=== PATIENT | female | born 1990 | race Caucasian/White ===

== ENCOUNTER 2018-03-24 13:28 | Emergency (ER) | payer OTHER ==
[~2018-03-24] VITALS: Ht 175.3 cm; Wt 127.0 kg
[2018-03-24] MEDS ORDERED: IBUP800 PO (13:49)
[2018-03-24] MEDS ORDERED: Norco 5-325 Ta1 EACH PO (13:49)
[2018-03-24] MEDS ORDERED: CYCL10 PO (13:49)
== END 2018-03-24 14:13 | disposition home or self-care (01) ==
LOC: ER 13:28
DX: S16.1XXA Strain of muscle, fascia and tendon at neck level, initial encounter (principal); M25.572 Pain in left ankle and joints of left foot; V44.5XXA Car driver injured in collision with heavy transport vehicle or bus in traffic accident, initial encounter
CPT/HCPCS: 96372; 99283-25; J1885

== ENCOUNTER → 2020-01-31 | Outpatient (CLI) | payer OTHER ==
[~2020-01-31] MED LIST: CYCL10 PO; IBUP800 PO; Norco 5-325 Ta1 EACH PO
[2020-02-02 01:10] LABS: CHLAMYDIA TRACHOMATIS, NAA Negative (Negative); NEISSERIA GONORRHOEAE, NAA Negative (Negative)
== END ==
LOC: LAB SHORT 14:49 → LAB UCHC 14:49
PROVIDERS: Registered Nurse Community Health
DX: Z33.1 Pregnant state, incidental (principal)
CPT/HCPCS: 87491; 87591

== ENCOUNTER → 2020-07-02 | Outpatient (CLI) | payer OTHER ==
[~2020-07-02] MED LIST changes: +ACET325 PO; +ALBU8HFA2 INH; +LORA10ER PO; +PANT40 PO; +PRENATAL TABLE1 EAC2 PO
== END ==
LOC: LAB SHORT 11:42 → LAB 11:42
DX: Z33.1 Pregnant state, incidental (principal); Z36.85 Encounter for antenatal screening for Streptococcus B
CPT/HCPCS: 87081; 87150

== ENCOUNTER 2020-07-22 04:57 | Inpatient (IN) | payer OTHER ==
[~2020-07-22] VITALS: Ht 175.3 cm; Wt 159.5 kg
[~2020-07-22 04:57] MED LIST changes: -ACET325 PO; -ALBU8HFA2 INH; -LORA10ER PO; -PANT40 PO; -PRENATAL TABLE1 EAC2 PO
[2020-07-22] MEDS ORDERED: PANT40 PO (05:23)
[2020-07-22] MEDS ORDERED: ALBU8HFA2 INH (05:24)
[2020-07-22] MEDS ORDERED: LORA10ER PO (05:24)
[2020-07-22] MEDS ORDERED: PRENATAL TABLE1 EAC2 PO (05:24)
[2020-07-22] MEDS ORDERED: ACET325 PO (05:31)
[2020-07-22 05:42] LABS: BASOPHILS ABSOLUTE AUTO 0.04 K/mm3 (0.00-0.23); BASOPHILS PERCENT AUTO 0 % (0-2); EOSINOPHILS ABSOLUTE AUTO 0.29 K/mm3 (0.00-0.68); EOSINOPHILS PERCENT AUTO 3 % (0-6); Hematocrit 35.6 % (33.0-51.0); Hemoglobin 11.5 g/dL (11.5-16.0); IMMATURE GRAN ABSOLUTE AUTO 0.04 K/mm3 (0.00-0.10); IMMATURE GRAN PERCENT AUTO 0 % (0-1); LYMPHOCYTES ABSOLUTE AUTO 1.96 K/mm3 (0.84-5.20); LYMPHOCYTES PERCENT AUTO 21 % (21-46); MONOCYTES ABSOLUTE AUTO 0.68 K/mm3 (0.16-1.47); MONOCYTES PERCENT AUTO 7 % (4-13); Mean Corpuscular HGB 26.3 pg (26.0-34.0); Mean Corpuscular HGB Conc 32.3 g/dL (31.5-36.5); Mean Corpuscular Volume 81 fL (80-100); NEUTROPHILS ABSOLUTE AUTO 6.31 K/mm3 (1.96-9.15); NEUTROPHILS PERCENT AUTO 68 % (41-73); Platelet Count 320 K/mm3 (150-400); RDW Coefficient Variation 14.9 % (11.7-14.2); RDW Standard Deviation 44.4 fL (35.1-46.3); Red Blood Cell Count 4.38 M/mm3 (3.80-5.20); White Blood Cell Count 9.32 K/mm3 (4.00-11.30)
[2020-07-23 06:13] LABS: BASOPHILS ABSOLUTE AUTO 0.04 K/mm3 (0.00-0.23); BASOPHILS PERCENT AUTO 0 % (0-2); EOSINOPHILS ABSOLUTE AUTO 0.24 K/mm3 (0.00-0.68); EOSINOPHILS PERCENT AUTO 2 % (0-6); Hematocrit 35.3 % (33.0-51.0); Hemoglobin 11.1 g/dL (11.5-16.0); IMMATURE GRAN ABSOLUTE AUTO 0.06 K/mm3 (0.00-0.10); IMMATURE GRAN PERCENT AUTO 1 % (0-1); LYMPHOCYTES ABSOLUTE AUTO 1.85 K/mm3 (0.84-5.20); LYMPHOCYTES PERCENT AUTO 19 % (21-46); MONOCYTES ABSOLUTE AUTO 0.89 K/mm3 (0.16-1.47); MONOCYTES PERCENT AUTO 9 % (4-13); Mean Corpuscular HGB 26.2 pg (26.0-34.0); Mean Corpuscular HGB Conc 31.4 g/dL (31.5-36.5); Mean Corpuscular Volume 84 fL (80-100); Mean Platelet Volume 11.1 fL (9.1-12.4); NEUTROPHILS ABSOLUTE AUTO 6.92 K/mm3 (1.96-9.15); NEUTROPHILS PERCENT AUTO 69 % (41-73); Platelet Count 302 K/mm3 (150-400); RDW Coefficient Variation 15.1 % (11.7-14.2); RDW Standard Deviation 45.4 fL (35.1-46.3); Red Blood Cell Count 4.23 M/mm3 (3.80-5.20)
[2020-07-23] MEDS ORDERED: IBUP800 PO (09:12)
--- NOTE | 2020-07-23 17:30 | NUR ---
D/C HOME WITH BABY
== END 2020-07-23 17:30 | disposition home or self-care (01) | DRG 807 ==
LOC: OBS 04:57 → BC 05:12
PROVIDERS: ADMIT Registered Nurse Community Health
PROC: 10E0XZZ Delivery of Products of Conception, External Approach (ICD-10-PCS; principal; 2020-07-22)
PROC: 3E033VJ Introduction of Other Hormone into Peripheral Vein, Percutaneous Approach (ICD-10-PCS; 2020-07-22)
PROC: 0HQ9XZZ Repair Perineum Skin, External Approach (ICD-10-PCS; 2020-07-22)
PROC: 3E0R3BZ Introduction of Anesthetic Agent into Spinal Canal, Percutaneous Approach (ICD-10-PCS; 2020-07-22)
PROC: 00HU33Z Insertion of Infusion Device into Spinal Canal, Percutaneous Approach (ICD-10-PCS; 2020-07-22)
PROC: 3E0234Z Introduction of Serum, Toxoid and Vaccine into Muscle, Percutaneous Approach (ICD-10-PCS; 2020-07-23)
DX: O99.214 Obesity complicating childbirth (principal); Z37.0 Single live birth; E66.01 Morbid (severe) obesity due to excess calories; O70.0 First degree perineal laceration during delivery; Z3A.39 39 weeks gestation of pregnancy; Z23 Encounter for immunization
CPT/HCPCS: 36415; 51702; 85025; 86850; 86900; 86901; 90471; 90707; A9270; J1885; J2001; J2210; J2590; J3010; J7120

== ENCOUNTER 2020-08-19 00:07 | Emergency (ER) | payer OTHER ==
[~2020-08-19] VITALS: Ht 175.3 cm; Wt 153.5 kg
[~2020-08-19 00:07] MED LIST changes: +ACET325 PO; +ALBU8HFA2 INH; +LORA10ER PO; +PANT40 PO; +PRENATAL TABLE1 EAC2 PO
[2020-08-19 01:02] LABS: BASOPHILS ABSOLUTE AUTO 0.07 K/mm3 (0.00-0.23); BASOPHILS PERCENT AUTO 1 % (0-2); EOSINOPHILS ABSOLUTE AUTO 0.66 K/mm3 (0.00-0.68); EOSINOPHILS PERCENT AUTO 7 % (0-6); Hematocrit 39.4 % (33.0-51.0); Hemoglobin 12.1 g/dL (11.5-16.0); IMMATURE GRAN ABSOLUTE AUTO 0.03 K/mm3 (0.00-0.10); IMMATURE GRAN PERCENT AUTO 0 % (0-1); LYMPHOCYTES ABSOLUTE AUTO 2.42 K/mm3 (0.84-5.20); LYMPHOCYTES PERCENT AUTO 24 % (21-46); MONOCYTES ABSOLUTE AUTO 0.94 K/mm3 (0.16-1.47); MONOCYTES PERCENT AUTO 9 % (4-13); Mean Corpuscular HGB 25.3 pg (26.0-34.0); Mean Corpuscular HGB Conc 30.7 g/dL (31.5-36.5); Mean Corpuscular Volume 82 fL (80-100); Mean Platelet Volume 10.4 fL (9.1-12.4); NEUTROPHILS ABSOLUTE AUTO 5.96 K/mm3 (1.96-9.15); NEUTROPHILS PERCENT AUTO 59 % (41-73); Platelet Count 376 K/mm3 (150-400); RDW Coefficient Variation 14.6 % (11.7-14.2); RDW Standard Deviation 44.1 fL (35.1-46.3); Red Blood Cell Count 4.79 M/mm3 (3.80-5.20); White Blood Cell Count 10.08 K/mm3 (4.00-11.30)
[2020-08-19 01:16] LABS: Source, Urine Clean Catch
[2020-08-19 01:18] LABS: Bilirubin, Urine Neg (Neg); Blood, Urine 5+ (Neg); Glucose Qualitative, Urine Neg (Neg); Ketones, Urine Neg (Neg); Leukocyte Esterase, Urine 2+ (Neg); Nitrite, Urine Neg (Neg); Protein, Urine Neg (Neg); Specific Gravity, Urine 1.015 (1.003-1.022); Urobilinogen, Urine NORM (Normal)
[2020-08-19 01:20] LABS: Alanine Aminotransfer (ALT/SGP 39 U/L (12-78); Albumin, Blood 3.1 g/dL (3.4-5.0); Albumin/Globulin Ratio 0.8 (0.8-1.8); Alk Phos 105 U/L (50-136); Anion Gap 5 mmol/L (6-16); Aspartate Aminotrans (AST/SGOT 23 U/L (12-37); Bilirubin, Total 0.1 mg/dL (0.1-1.0); Blood Urea Nitrogen 14 mg/dL (8-24); Bun/Creatinine Ratio 18.6 (12.0-20.0); CO2, Blood 27 mmol/L (21-32); Calcium, Blood 8.6 mg/dL (8.5-10.1); Chloride, Blood 106 mmol/L (98-108); Creatinine, Blood 0.75 mg/dL (0.40-1.00); Globulin, Blood 3.8 g/dL (2.2-4.0); Glomerular Filtration Rate >60 (60-); Glucose, Blood 101 mg/dL (70-99); Potassium, Blood 3.6 mmol/L (3.5-5.5); Sodium, Blood 138 mmol/L (136-145); Total Protein, Blood 6.9 g/dL (6.4-8.2)
[2020-08-19 01:21] LABS: Appearance, Urine Clear (Clear); Color, Urine Yellow (P-Yellow)
[2020-08-19 01:24] LABS: Bacteria Few /hpf; Red Blood Cells, Urine 0-2 /hpf (0-2); Squamous Epithelial Cells Few /hpf (Few)
== END 2020-08-19 02:50 | disposition home or self-care (01) ==
LOC: ER 00:07
PROVIDERS: Student in an Organized Health Care Education/Training Program
DX: K80.20 Calculus of gallbladder without cholecystitis without obstruction (principal); J45.909 Unspecified asthma, uncomplicated; Z91.030 Bee allergy status; Z79.899 Other long term (current) drug therapy
CPT/HCPCS: 36415; 76705; 80053; 81001; 81025; 83690; 85025; 87086; 96374; 99284-25; J1885

== ENCOUNTER 2020-09-17 19:40 | Emergency (ER) | payer OTHER ==
[~2020-09-17] VITALS: Ht 175.3 cm; Wt 154.2 kg
[2020-09-17 20:34] LABS: BASOPHILS ABSOLUTE AUTO 0.08 K/mm3 (0.00-0.23); BASOPHILS PERCENT AUTO 1 % (0-2); EOSINOPHILS PERCENT AUTO 5 % (0-6); Hematocrit 40.1 % (33.0-51.0); Hemoglobin 12.4 g/dL (11.5-16.0); IMMATURE GRAN ABSOLUTE AUTO 0.05 K/mm3 (0.00-0.10); IMMATURE GRAN PERCENT AUTO 0 % (0-1); LYMPHOCYTES ABSOLUTE AUTO 3.72 K/mm3 (0.84-5.20); LYMPHOCYTES PERCENT AUTO 29 % (21-46); MONOCYTES PERCENT AUTO 8 % (4-13); Mean Corpuscular HGB 25.5 pg (26.0-34.0); Mean Corpuscular HGB Conc 30.9 g/dL (31.5-36.5); Mean Corpuscular Volume 83 fL (80-100); Mean Platelet Volume 10.1 fL (9.1-12.4); NEUTROPHILS ABSOLUTE AUTO 7.43 K/mm3 (1.96-9.15); NEUTROPHILS PERCENT AUTO 57 % (41-73); Platelet Count 403 K/mm3 (150-400); RDW Coefficient Variation 14.6 % (11.7-14.2); RDW Standard Deviation 43.9 fL (35.1-46.3); Red Blood Cell Count 4.86 M/mm3 (3.80-5.20); White Blood Cell Count 12.98 K/mm3 (4.00-11.30)
[2020-09-17 20:42] LABS: Alanine Aminotransfer (ALT/SGP 48 U/L (12-78); Albumin, Blood 3.3 g/dL (3.4-5.0); Albumin/Globulin Ratio 0.8 (0.8-1.8); Alk Phos 103 U/L (50-136); Anion Gap 5 mmol/L (6-16); Aspartate Aminotrans (AST/SGOT 34 U/L (12-37); Bilirubin, Total 0.2 mg/dL (0.1-1.0); Blood Urea Nitrogen 13 mg/dL (8-24); Bun/Creatinine Ratio 15.8 (12.0-20.0); CO2, Blood 30 mmol/L (21-32); Calcium, Blood 8.9 mg/dL (8.5-10.1); Chloride, Blood 107 mmol/L (98-108); Creatinine, Blood 0.82 mg/dL (0.40-1.00); Glomerular Filtration Rate >60 (60-); Glucose, Blood 103 mg/dL (70-99); Potassium, Blood 3.5 mmol/L (3.5-5.5); Sodium, Blood 142 mmol/L (136-145); Total Protein, Blood 7.3 g/dL (6.4-8.2)
== END 2020-09-18 00:36 | disposition home or self-care (01) ==
LOC: ER 19:40
PROVIDERS: Physician Assistant
DX: K80.70 Calculus of gallbladder and bile duct without cholecystitis without obstruction (principal); Z91.030 Bee allergy status; Z79.899 Other long term (current) drug therapy
CPT/HCPCS: 76705; 80053; 83690; 84703; 85025; 96374; 96375; 99284-25; A9270; J1885; J2405; J2765

== ENCOUNTER 2020-09-26 08:40 | Day surgery (SDC) | payer OTHER ==
[~2020-09-26] VITALS: Ht 175.3 cm; Wt 149.1 kg
--- NOTE | 2020-09-26 09:41 | NUR ---
Ambulatory in [facility] warming gown applied. Surgical site prepped with 2% Chlorhexidine cloth wipe. History, Chart, Medications and Allergies reviewed before start of procedure.Lungs clear T/O to Auscultation. Patient confirms NPO status and agrees with scheduled surgery. Patient States Post-Procedure ride home has been arranged. Patient reports completing Chlorhexadine shower X2 prior to admission to hospital.
--- NOTE | 2020-09-26 12:45 | NUR ---
PT TO RECOVERY ON 3L NC. PT BIOX BIOX 94% ON 3L. PT O2 TURNED OFF TO EVALUATE PT. PT BIOX UP TO 98% AFTER TAKING A FEW DEEP BREATHS. PT ENCOURAGED TO SPLINT HER ABD AND DEEP BREATH. PT ABLE TO TAKE SMALL SIPS OF SPRITE AND HAS EAT A ALBA CRACKERS. REPORTS PAIN IS 6/10. PT GIVEN NORCO PO. PT WHEN AT REST BIOX WILL DROP TO 89% BUT RETURNS TO MID TO HIGH 90'S WITH A FEW FEW DEEP BREATHS. WILL TURN O2 BACK ON 2L AND ALLOW PT TO REST FOR A BIT.
--- NOTE | 2020-09-26 13:14 | NUR ---
O2 DOWN TO 1L NC. PT BIOX MAINTAINING BETWEEN 93-95%. PT C/O IMPROVEMENT IN PAIN BUT C/O NAUSEA. PT GIVEN ZOFRAN 4MG IV. WILL CONTINUE TO MONITOR PATIENT.
--- NOTE | 2020-09-26 13:51 | NUR ---
PT DID VOMIT AFTER SHE WAS ABLE TO SIT UP AND GET DRESSED. PT REPORTS FEELING SOME BETTER AFTER VOMITING. EMESIS ABOUT 300CC OF GREENISH EMESIS. NO APPEARANCE OF RECENT PAIN PILL THAT PT JUST TOOK. PT REPORTS PAIN IS ABOUT 4/10. REQUESTS SOME SPRITE AND STATES SHE IS READY TO GO HOME. DC INSTRUCTION PROVIDED. PT VERBALIZED UNDERSTANDING.
== END 2020-09-26 13:56 | disposition home or self-care (01) ==
LOC: ORSCMMR 08:40 → ORSCSDS 09:30 → ORD 10:00 → ORSCMMR 10:00 → ORD 10-21 10:00
PROVIDERS: Surgery
PROC: BF031ZZ Plain Radiography of Gallbladder and Bile Ducts using Low Osmolar Contrast (ICD-10-PCS; principal; 2020-09-26 10:00)
PROC: 0FT44ZZ Resection of Gallbladder, Percutaneous Endoscopic Approach (ICD-10-PCS; principal; 2020-09-26 10:00)
DX: K80.20 Calculus of gallbladder without cholecystitis without obstruction (principal); K21.9 Gastro-esophageal reflux disease without esophagitis; J45.909 Unspecified asthma, uncomplicated; E66.01 Morbid (severe) obesity due to excess calories; Z68.42 Body mass index [BMI] 45.0-49.9, adult; Z79.899 Other long term (current) drug therapy
CPT/HCPCS: 74300; 88304; A9270; C1729; J0690; J1100; J1885; J2250; J2405; J2704; J2765; J3010; J7120

== ENCOUNTER → 2021-11-11 | Outpatient (CLI) | payer OTHER | END | disposition home or self-care (01) | LOC: LAB 10:30 → LAB SHORT 10:30 | DX: N92.5 Other specified irregular menstruation (principal) | CPT/HCPCS: 84702 ==

== ENCOUNTER → 2022-04-21 | Outpatient (CLI) | payer OTHER | END | disposition home or self-care (01) | LOC: LAB SHORT 13:08 → LAB 13:08 | PROVIDERS: Registered Nurse Community Health | DX: Z12.4 Encounter for screening for malignant neoplasm of cervix (principal) | CPT/HCPCS: G0145 ==

== ENCOUNTER → 2022-11-03 | Outpatient (CLI) | payer OTHER ==
[2022-11-05 00:08] LABS: CHLAMYDIA TRACHOMATIS, NAA Negative (Negative)
== END | disposition home or self-care (01) ==
LOC: LAB SHORT 11:21 → LAB 11:21
PROVIDERS: Registered Nurse Community Health
DX: Z34.83 Encounter for supervision of other normal pregnancy, third trimester (principal)
CPT/HCPCS: 36415; 87491; 87591

== ENCOUNTER → 2023-04-01 | Outpatient (CLI) | payer OTHER | LOC: LAB SHORT 17:54 → LAB 17:54 | DX: Z32.01 Encounter for pregnancy test, result positive (principal) | CPT/HCPCS: 84702 ==

== ENCOUNTER → 2023-04-06 | Outpatient (CLI) | payer OTHER | END | disposition home or self-care (01) | LOC: LAB SHORT 16:43 → LAB 16:43 | DX: Z32.01 Encounter for pregnancy test, result positive (principal) | CPT/HCPCS: 84702 ==

== ENCOUNTER → 2023-04-08 | Outpatient (CLI) | payer OTHER | END | disposition home or self-care (01) | LOC: LAB SHORT 12:37 → LAB 12:37 | DX: N91.2 Amenorrhea, unspecified (principal) | CPT/HCPCS: 84702 ==

== ENCOUNTER → 2023-05-20 | Outpatient (CLI) | payer OTHER ==
[2023-05-22 06:47] LABS: APTIMA MEDIA TYPE Urine; C. TRACHOMATIS BY TMA Negative (Negative); N. GONORRHOEAE BY TMA Negative (Negative); SPECIMEN SOURCE Urine
== END | disposition home or self-care (01) ==
LOC: LAB 11:46 → LAB SHORT 11:46
PROVIDERS: Registered Nurse Community Health
DX: Z34.83 Encounter for supervision of other normal pregnancy, third trimester (principal)
CPT/HCPCS: 87491; 87591

== ENCOUNTER → 2023-07-20 | Outpatient (CLI) | payer OTHER | LOC: LAB SHORT 14:49 → LAB 14:49 | DX: Z34.82 Encounter for supervision of other normal pregnancy, second trimester (principal) | CPT/HCPCS: 82950 ==

== ENCOUNTER → 2023-08-03 | Outpatient (CLI) | payer OTHER ==
[2023-08-03 16:27] LABS: Hematocrit 36.9 % (33.0-51.0); Hemoglobin 11.6 g/dL (11.5-16.0)
== END | disposition home or self-care (01) ==
LOC: LAB SHORT 14:33 → LAB 14:33
PROVIDERS: Registered Nurse Community Health
DX: Z34.82 Encounter for supervision of other normal pregnancy, second trimester (principal)
CPT/HCPCS: 83036; 85014; 85018

== ENCOUNTER → 2023-09-15 | Outpatient (CLI) | payer OTHER ==
[2023-09-15 13:55] LABS: Hematocrit 35.9 % (33.0-51.0)
== END ==
LOC: LAB SHORT 11:33 → LAB 11:33
PROVIDERS: Registered Nurse Community Health
DX: Z34.93 Encounter for supervision of normal pregnancy, unspecified, third trimester (principal)
CPT/HCPCS: 82950; 85014; 85018

== ENCOUNTER → 2023-11-11 | Outpatient (CLI) | payer OTHER | LOC: LAB 18:46 → LAB SHORT 18:46 | DX: Z34.93 Encounter for supervision of normal pregnancy, unspecified, third trimester (principal) | CPT/HCPCS: 87081; 87150 ==

== ENCOUNTER 2023-12-06 02:44 | Inpatient (IN) | payer OTHER ==
[~2023-12-06] VITALS: Ht 175.3 cm; Wt 156.8 kg
[2023-12-06] VITALS (12 sets, daily range): BP systolic 123–151; BP diastolic 58–92
[2023-12-06] MEDS ORDERED: OXYTOCIN/RINGER'S LACTATE 500 ML IV PRN (02:55)
[2023-12-06] MEDS ORDERED: Carboprost Tromethamine 250 MCG/ML 1ML Amp IM PRN (02:55)
[2023-12-06] MEDS ORDERED: Oxytocin 10 Unit / ML Vial IM PRN (02:55)
[2023-12-06] MEDS ORDERED: FentaNYL 2mcg/ml-Bup 0.1% Epd 250 ML EPI PRN (02:55)
[2023-12-06] MEDS ORDERED: Lactated Ringer's 1,000 ML IV PRN (02:55)
[2023-12-06] MEDS ORDERED: Misoprostol 200 MCG Tab PR PRN ×2 (02:55→03:50)
[2023-12-06] MEDS ORDERED: Tranexamic Acid 100 ML IV SCH (02:55)
[2023-12-06] MEDS ORDERED: Methylergonovine Maleate 0.2MG / ML 1ML Amp IM PRN (02:55)
[2023-12-06] MEDS ORDERED: ePHEDrine Sulfate 50 MG/ML 1ML Injection XX PRN (02:55)
[2023-12-06] MEDS ORDERED: Lactated Ringer's 1,000 ML IV SCH ×3 (02:55→03:55)
[2023-12-06] MEDS ORDERED: Misoprostol 200 MCG Tab BC PRN ×2 (02:55→04:20)
[2023-12-06] MEDS ORDERED: Ondansetron HCl 2 MG / ML 2ML Vial IV PRN (03:00)
[2023-12-06] MEDS ORDERED: Calcium Carbonate 500 MG Tab Chew PO PRN (03:00)
[2023-12-06] MEDS ORDERED: Acetaminophen 500 MG Tab PO PRN (03:00)
[2023-12-06] MEDS ORDERED: OXYTOCIN/RINGER'S LACTATE 500 ML IV ONE (03:02)
[2023-12-06] MEDS ORDERED: ASPI81CH (03:11)
[2023-12-06] MEDS ORDERED: Misoprostol 200 MCG Tab PO PRN (03:50)
[2023-12-06] MEDS ORDERED: OxyCODONE 5 mg/Acetamin 325 mg TABLET PO PRN (03:50)
[2023-12-06] MEDS ORDERED: Ibuprofen 400 MG Tab PO PRN (03:55)
[2023-12-06] MEDS ORDERED: Benzocaine Topical Anesthetic Spray 60GM TOP PRN (03:55)
[2023-12-06] MEDS ORDERED: Acetaminophen 325 MG TABLET PO PRN (03:55)
[2023-12-06] MEDS ORDERED: Witch Hazel/Glycerin PADS TOP PRN (03:55)
[2023-12-06] MEDS ORDERED: Ketorolac Tromethamine 30mg Vial IV SCH (06:00)
[2023-12-06] MEDS ORDERED: Prenatal Vit/FE Fumarate/FA 1 Tab PO SCH (09:00)
[2023-12-07 03:44] VITALS: BP 126/74
[2023-12-07] MEDS ORDERED: ACET500 PO (05:48)
[2023-12-07] MEDS ORDERED: IBUP800 PO (05:48)
[2023-12-07 07:55] VITALS: BP 131/89
--- NOTE | 2023-12-07 09:47 | NUR ---
"Spiritual Care | Pt. request Pt. is in bed hold her new born son Balwinder. SO is present. Facilitate a life review and listen with empathy and calming presence. Pt. and baby display evidence of being well rested, and Pt. is aware and engaged in our visit. Prayed for the Pt. and blessed the baby. Family verbalized gratitude for the spiritual care visit."
[2023-12-07 11:01] VITALS: BP 139/94
[2023-12-07 11:26] VITALS: BP 140/90
== END 2023-12-07 12:50 | disposition home or self-care (01) | DRG 807 ==
LOC: OBS 02:44 → BC 02:54
PROVIDERS: ADMIT Family Medicine
PROC: 10E0XZZ Delivery of Products of Conception, External Approach (ICD-10-PCS; principal; 2023-12-06)
PROC: 3E0R3BZ Introduction of Anesthetic Agent into Spinal Canal, Percutaneous Approach (ICD-10-PCS; 2023-12-06)
PROC: 00HU33Z Insertion of Infusion Device into Spinal Canal, Percutaneous Approach (ICD-10-PCS; 2023-12-06)
DX: O42.02 Full-term premature rupture of membranes, onset of labor within 24 hours of rupture (principal); Z37.0 Single live birth; O48.0 Post-term pregnancy; O62.3 Precipitate labor; Z91.030 Bee allergy status; Z91.038 Other insect allergy status; Z79.82 Long term (current) use of aspirin; Z79.899 Other long term (current) drug therapy
CPT/HCPCS: 36415; A9270; J1885; J2590

== ENCOUNTER → 2024-05-04 | Outpatient (CLI) | payer OTHER ==
[~2024-05-04] MED LIST changes: +ACET500 PO; +ASPI81CH
[2024-05-04 12:50] LABS: BASOPHILS ABSOLUTE AUTO 0.08 K/mm3 (0.00-0.23); BASOPHILS PERCENT AUTO 1 % (0-2); EOSINOPHILS ABSOLUTE AUTO 0.29 K/mm3 (0.00-0.68); EOSINOPHILS PERCENT AUTO 3 % (0-6); Hematocrit 39.8 % (33.0-51.0); Hemoglobin 12.4 g/dL (11.5-16.0); IMMATURE GRAN ABSOLUTE AUTO 0.04 K/mm3 (0.00-0.10); IMMATURE GRAN PERCENT AUTO 0 % (0-1); LYMPHOCYTES ABSOLUTE AUTO 2.01 K/mm3 (0.84-5.20); LYMPHOCYTES PERCENT AUTO 20 % (21-46); MONOCYTES ABSOLUTE AUTO 0.78 K/mm3 (0.16-1.47); MONOCYTES PERCENT AUTO 8 % (4-13); Mean Corpuscular HGB 24.8 pg (26.0-34.0); Mean Corpuscular HGB Conc 31.2 g/dL (31.5-36.5); Mean Corpuscular Volume 79 fL (80-100); Mean Platelet Volume 10.3 fL (9.1-12.4); NEUTROPHILS ABSOLUTE AUTO 6.87 K/mm3 (1.96-9.15); NEUTROPHILS PERCENT AUTO 68 % (41-73); Platelet Count 369 K/mm3 (150-400); RDW Coefficient Variation 15.3 % (11.7-14.2); RDW Standard Deviation 43.9 fL (35.1-46.3); Red Blood Cell Count 5.01 M/mm3 (3.80-5.20); White Blood Cell Count 10.07 K/mm3 (4.00-11.30)
[2024-05-04 13:05] LABS: Alanine Aminotransfer (ALT/SGP 37 U/L (12-78); Albumin, Blood 3.3 g/dL (3.4-5.0); Albumin/Globulin Ratio 0.8 (0.8-1.8); Alk Phos 93 U/L (50-136); Anion Gap 12 mmol/L (3-11); Aspartate Aminotrans (AST/SGOT 19 U/L (12-37); Bilirubin, Total 0.3 mg/dL (0.1-1.0); Blood Urea Nitrogen 11 mg/dL (8-24); Bun/Creatinine Ratio 21.4 (12.0-20.0); CHOL/HDL RATIO 3.2; CO2, Blood 25 mmol/L (21-32); Calcium, Blood 9.1 mg/dL (8.5-10.1); Chloride, Blood 108 mmol/L (98-108); Cholesterol 155 mg/dL (50-200); Creatinine, Blood 0.52 mg/dL (0.40-1.00); Glomerular Filtration Rate 127 (60-); Glucose, Blood 93 mg/dL (70-99); HDL Cholesterol 49 mg/dL (>39); LDL/HDL RATIO 1.5; Low Density Lipoprotein Chol 72 mg/dL (0-110); Potassium, Blood 3.9 mmol/L (3.5-5.5); Sodium, Blood 141 mmol/L (136-145); Total Protein, Blood 7.3 g/dL (6.4-8.2); Triglycerides 169 mg/dL (30-140); Very Low Density Lipoprot Chol 34 mg/dL (6-28)
== END | disposition home or self-care (01) ==
LOC: LAB 11:52 → LAB SHORT 11:52
PROVIDERS: Family Medicine
DX: Z79.899 Other long term (current) drug therapy (principal)
CPT/HCPCS: 80053; 80061; 82306; 83036; 84443; 85025

== ENCOUNTER → 2024-07-31 | Outpatient (CLI) | payer OTHER ==
[2024-08-02 10:29] LABS: APTIMA MEDIA TYPE Urine; C. TRACHOMATIS BY TMA Negative (Negative); N. GONORRHOEAE BY TMA Negative (Negative); SPECIMEN SOURCE Urine
== END | disposition home or self-care (01) ==
LOC: LAB SHORT 14:54 → LAB 14:54
PROVIDERS: Registered Nurse Community Health
DX: Z34.81 Encounter for supervision of other normal pregnancy, first trimester (principal)
CPT/HCPCS: 87491; 87591